=== PATIENT | male | born 2000 | race African-American/Black ===

== ENCOUNTER 2024-12-03 14:32 | Emergency (ER) | payer MEDICAID, OTHER ==
[~2024-12-03] VITALS: Ht 182.9 cm; Wt 79.5 kg
[2024-12-03 14:33] VITALS: BP 138/83; PULSE 71; RESP 16; TEMP 97.7; O2SAT 97
--- NOTE | 2024-12-03 15:23 | ED.PDOC ---
Musculoskeletal HPI Comments A 24 YEAR OLD MALE PRESENTS TO THE ED WITH COMPLAINT OF RIGHT ANKLE PAIN. PATIENT STATES HE WAS PLAYING BASKETBALL EARLIER TODAY AND WHEN HE JUMPED HE ACCIDENTALLY LANDED WRONG ON HIS RIGHT ANKLE. PATIENT REPORTS HE IS NOW EXPERIENCING RIGHT ANKLE PAIN WITH SWELLING. PATIENT DENIES FEVER, CHILLS, SHORTNESS OF BREATH, CHEST PAIN, ABDOMINAL PAIN, NAUSEA, VOMITING, HEADACHE, OR OTHER COMPLAINTS. NO OTHER SYMPTOMS OR MODIFYING FACTORS AT THIS TIME. PATIENT IS ALERT, ORIENTED X 4, AND HAS STEADY GAIT. Chief Complaint: Lower Extremity Time Seen by MD: 14:38 Primary Care Provider: KARISHMA APONTE Reviewed Notes: Nurses Notes, Medications, Allergies Allergies: Coded Allergies: NO KNOWN ALLERGIES (Unverified , 09/03/10) Information Source: Patient Mode of Arrival: Ambulatory Location: Right Extremity Location: Ankle Timing: Days Prehospital treatment: None Severity: Moderate Able to Move Extremity: Yes Bear Weight: Fully Pain: Moderate Mechanism: Twisting Circumstances: Sporting, Accident Onset of Symptoms: After Trauma Symptoms: Swelling, Pain DVT Risk Factors: NONE Last Tetanus: Unknown Associated signs and symptoms: Ankle pain Past Medical History PAST MEDICAL HISTORY: Denies Surgical History: Denies all surgeries Family History Family History: Reviewed,noncontributory to illness Social History Smoker: Non-Smoker Alcohol: Denies ETOH Use Drugs: Denies Drug Use Lives In: Home Constitutional: denies: chills, diaphoresis, fatigue, fever, malaise, sweats, weakness, others EENTM: denies: blurred vision, double vision, ear bleeding, ear discharge, ear drainage, ear pain, ear ringing, eye pain, eye redness, hearing loss, mouth pain, mouth swelling, nasal discharge, nose bleeding, nose congestion, nose pain, photophobia, tearing, throat pain, throat swelling, voice changes, others Respiratory: denies: cough, hemoptysis, orthopnea, SOB at rest, shortness of breath, SOB with excertion, stridor, wheezing, others Cardiovascular: denies: chest pain, dizzy spells, diaphoresis, Dyspnea on e xertion, edema, irregular heart beat, left arm pain, lightheadedness, palpitations, PND, syncope, others Gastrointestinal: denies: abdomen distended, abdominal pain, blood streaked bowels, constipated, diarrhea, dysphagia, difficulty swallowing, hematemesis, melena, nausea, poor appetite, poor fluid intake, rectal bleeding, rectal pain, vomiting, others Genitourinary: denies: burning, dysuria, flank pain, frequency, hematuria, incontinence, penile discharge, penile sore, pain, testicle pain, testicle swelling, urgency, others Neurological: denies: dizziness, fainting, headache, left sided numbness, left sided weakness, numbness, paresthesia, pre-existing deficit, right sided numbness, right sided weakness, seizure, speech problems, tingling, tremors, weakness, others Musculoskeletal: reports: joint pain, joint swelling, others (RIGHT ANKLE PAIN WITH SWELLING); denies: back pain, gout, muscle pain, muscle stiffness, neck pain Integumetry: denies: bruises, change in color, change in hair/nails, dryness, laceration, lesions, lumps, rash, wounds, others Allergic/Immunocompromised: denies: Difficulty Healing, Frequent Infections, Hives, Itching, others Hematologic/Lymphatic: denies: anemia, blood clots, easy bleeding, easy bruising, swollen glands, others Endocrine: denies: excessive hunger, excessive sweating, excessive thirst, excessive urination, flushing, intolerance to cold, intolerance to heat, unexpl ained weight gain, unexplained weight loss, others Psychiatric: denies: anxiety, bipolar disorder, depression, hopeless, panic disorder, schizophrenia, sleepless, suicidal, others All Other Systems: Reviewed and Negative Physical Exam General Appearance: No Apparent Distress, Normal HEENT: Normal ENT Inspection, PERRL/EOMI, Pharynx Normal, TMs Normal Neck: Full Range of Motion, Non-Tender, Normal, Normal Inspection Respiratory: Chest Non-Tender, Lungs Clear, No Accessory Muscle Use, No Respi ratory Distress, Normal Breath Sounds Cardiovascular: No Edema, No JVD, No Murmur, No Gallop, Normal Peripheral Pulses, Regular Rate/Rhythm Breast Exam: Deferred Gastrointestinal: No Organomegaly, Non Tender, No Pulsatile Mass, Normal Bowel Sounds, Soft Genitalia: Deferred Pelvic: Deferred Rectal: Deferred Extremities: Decreased range of motion, No calf tenderness, Normal capillary refill, No pedal edema, Swelling (TENDERNESS AND SWELLING ON RIGHT LATERAL ANKLE, NO BONY TENDERNESS AND DEFORMITY. ), Tender (AND SWELLING ON RIGHT LATERAL ANKLE. ) Musculoskeletal : Apperance: Normal Neurologic: Alert, jewelry maker II-XII nml as Tested, No Motor Deficits, Normal Affect, Normal Mood, No Sensory Deficits Cerebellar Function: Normal Reflexes: Normal Skin: Dry, Normal Color, Warm Peripheral Pulses: 2+ carotid (R), 2+ carotid (L), 2+ dorsalis pedis (R), 2+ dorsalis pedis (L) Lymphatic: No Adenopathy Was a procedure done? Was a procedure done?: No Differential Diagnosis EXT Differential Diagnosis: Fracture, Sprain, Dislocation, Contusion, Strain, Arthritis, Bursitis X-Ray, Labs, Meds, VS Vital Signs Date Time Temp Pulse Resp B/P (MAP) Pulse Ox O2 Delivery O2 Flow Rate FiO2 12/03/24 14:33 97.7 71 16 138/83 97 97.7 CLINICAL INDICATION: FALL TECHNIQUE: 3 radiographic views of the right ankle were obtained. Comparison: None FINDINGS/IMPRESSION: Soft tissue swelling over the lateral malleolus. No bony fracture. Can not exclude ligamentous or tendinous injury. Cortical irregularity of the tip of the medial malleolus age indeterminate. Correlate for acute tenderness. HS:Y ATED BY: OMAR MARTIN Jr., DO DICTATED DATE/TIME: 12/03/241544 SIGNED BY: OMAR MARTIN Jr., SIGNED DATE/TIME: 12/03/241544 CC: X-Ray, Labs, Meds, VS Comment EXTERNAL MEDICAL RECORDS REVIEWED: [NONE] INDEPENDENT HISTORIANS: [NONE] SOCIAL DETERMINANTS OF HEALTH: [NONE] LABS ORDERED: NONE REVIEWED AND INTERPRETED RESULTS: NONE IMAGING ORDERED: XR ANKLE RT TREATMENTS ORDERED: MATIAS WRAP APPLIED TO PATIENT'S RIGHT ANKLE. CRUTCHES GIVEN. PROCEDURES PERFORMED: NONE CRITICAL CARE TIME: NONE I HAVE DISCUSSED THE PATIENT WITH THE ATTENDING PHYSICIAN DR. LORENZA BETANCOURT AND SHE AGREES WITH THE PATIENT'S PLAN OF CARE AND DISPOSITION. BASED ON HISTORY OF PRESENT ILLNESS, AND PHYSICAL EXAM, PATIENT WILL BE DISCHARGED HOME. DISCUSSED PLAN FOR DISCHARGE HOME WITH RX [IBUPROFEN 800 MG]. MEDICATION WARNINGS GIVEN. SHARED DECISION MAKING: PATIENT INSTRUCTED TO FOLLOW UP WITH PRIMARY CARE PROVIDER IN 1-2 DAYS FOR RE-EVALUATION OF SYMPTOMS. PATIENT VERBALIZES UNDERSTANDING TO RETURN TO ED FOR NEW OR WORSENING SYMPTOMS OR IF FOLLOW UP WITH PCP CANNOT BE OBTAINED. PATIENT FEELS COMFORTABLE GOING HOME AT THIS TIME. ALL QUESTIONS ADDRESSED AT TIME OF DISCHARGE. Images Reviewed?: Images reviewed and evaluated by me Time of 1ST Reevaluation: 16:05 Reevaluation 1ST: Improved Patient Education/Counseling: Diagnosis, Treatment, Need For Follow Up Family Education/Counseling: Diagnosis, Treatment, Need For Follow Up Medical Screening: No EMC Exist At This Time Departure 1 Departure Time of Disposition: 16:05 Impression: Primary Impression: Sprain of right ankle Qualified Codes: S93.401A - Sprain of unspecified ligament of right ankle, initial encounter Disposition: 01 HOME / SELF CARE / HOMELESS Condition: Stable Additional Instructions: FOLLOW-UP WITH PCP IN 1 TO 2 DAYS. TAKE MEDICATIONS PRESCRIBED. RETURN TO ED FOR ANY NEW OR WORSENING SYMPTOMS. e-Prescriptions Ibuprofen (Ibuprofen) 800 Mg Tab 1 TAB PO TID, #60 TAB Prov: DONNA EDWARDS 12/03/24 Discharged With: Self Critical Care Note Critical Care Time?: No Stability Stability form required: No I personally scribed for DONNA EDWARDS ([email or web address]) on 12/03/24 at 15:23. Electronically submitted by Wellington Marshall ([employer]). I personally scribed for DONNA EDWARDS ([email or web address]) on 12/03/24 at 15:50. Electronically submitted by Wellington Marshall ([employer]). I personally scribed for DONNA EDWARDS ([email or web address]) on 12/03/24 at 15:55. Electronically submitted by Wellington Marshall ([employer]). DONNA EDWARDS Dec 03, 2024 15:23
--- NOTE | 2024-12-03 15:48 | DVH ---
CLINICAL INDICATION: FALL TECHNIQUE: 3 radiographic views of the right ankle were obtained. Comparison: None FINDINGS/IMPRESSION: Soft tissue swelling over the lateral malleolus. No bony fracture. Can not exclude ligamentous or ten dinous injury. Cortical irregularity of the tip of the medial malleolus age indeterminate. Correlate for acute tende rness. HS:Y
[2024-12-03] MEDS ORDERED: IBUP-1456 PO (16:06)
== END 2024-12-03 16:14 | disposition home or self-care (01) ==
LOC: ER 14:32
DX: S93.401A Sprain of unspecified ligament of right ankle, initial encounter (principal); X58.XXXA Exposure to other specified factors, initial encounter; Y93.67 Activity, basketball; Y92.89 Other specified places as the place of occurrence of the external cause; Y99.8 Other external cause status
CPT/HCPCS: 73610